=== PATIENT | female | born 2000 ===

== ENCOUNTER → 2021-11-02 11:25 | Outpatient (CLI) | payer OTHER, SELFPAY ==
--- NOTE | ~2021-11-02 | US_ITS ---
US renal BI 11/02/2021 12:18 Procedure: Realtime transabdominal ultrasound of the kidneys and bladder. Indication: Hypertension Comparison: No prior studies for comparison. Findings: Renal echotexture is normal bilaterally without hydronephrosis, contour deforming mass or r enal calculus. The right kidney measures 10.9 cm and left kidney measures 10.2 cm. Bladder within no rmal limits. Impression: 1: Unremarkable renal ultrasound. No stones, masses or hydronephrosis. Reviewed, dictated and finalized at location A. Impression: 1: Unremarkable renal ultrasound. No stones, masses or hydronephrosis.
== END ==
DX: I10 Essential (primary) hypertension (principal)
CPT/HCPCS: 76775